=== PATIENT | male | born 1940 | race Caucasian/White ===

== ENCOUNTER → 2020-08-02 | Outpatient (CLI) | payer MEDICARE, OTHER ==
[~2020-08-02] MED LIST: ALLO300T PO; AMLO-150 PO; ASPI-496 PO; CHOL5000 PO; FLEC100T PO; HYDROCHLOROTH12.5 MG PO; LEVO25TA4 PO; LISI40TA PO; METO50TA82 PO; SIMV20TA19 PO; TEST100V2 INJ; TORS10TA4 PO; WARF-36 PO; WARF7.5T46 PO
[2020-08-02 13:53] LABS: BASOPHILS % (AUTO) 1 % (0-1); EOSINOPHILS % (AUTO) 3 % (1-7); LYMPHOCYTES % (AUTO) 24 % (22-44); MEAN CORPUSCULAR HEMOGLOBIN 33.7 pg (27.5-34.5); MEAN CORPUSCULAR HGB CONC 34.1 g/dL (33.2-36.2); MEAN PLATELET VOLUME 9.6 fL (7.4-10.4); MONOCYTES % (AUTO) 8 % (2-9); NEUTROPHILS % (AUTO) 63 % (42-75); PLATELET COUNT 169 x10^3/uL (130-400); RED BLOOD COUNT 4.69 x10^6/uL (4.38-5.82)
[2020-08-02 14:03] LABS: MD NO
[2020-08-02 14:06] LABS: CHLORIDE 103 mmol/L (98-107)
[2020-08-02 14:15] LABS: ALANINE AMINOTRANSFERASE 55 U/L (12-78); ALBUMIN 3.6 g/dL (3.4-5.0); ALKALINE PHOSPHATASE 59 U/L (45-117); ANION GAP 3 mmol/L (5-15); BILIRUBIN,TOTAL 0.8 mg/dL (0.2-1.0); CREATININE 1.38 mg/dL (0.7-1.3)
== END | disposition home or self-care (01) ==
LOC: STAR 10:08
PROVIDERS: ATTEND Orthopaedic Surgery
DX: Z01.810 Encounter for preprocedural cardiovascular examination (principal); Z01.818 Encounter for other preprocedural examination; M25.562 Pain in left knee; I49.1 Atrial premature depolarization; Z20.828 Contact with and (suspected) exposure to other viral communicable diseases
CPT/HCPCS: 80053; 85025; 87081; 87635; 93005

== ENCOUNTER 2020-08-08 08:51 | Observation (INO) | payer MEDICARE, OTHER ==
[~2020-08-08] VITALS: Ht 185.4 cm; Wt 140.8 kg
[~2020-08-08 08:51] MED LIST changes: +EPINEPHRINE 1 MG/ML, 1ML ONE; +KETOROLAC 60 MG/2 ML ONE; +ROPIvacaine/PF 0.2%, 20 ML ONE; +SODIUM CHLORIDE 0.9% 50 ML ONE; +TRANEXAMIC ACID 100 MG/ML, 10ML ONE
[2020-08-08] MEDS ORDERED: LACTATED RINGERS 1,000 ML IV SCH (09:30)
[2020-08-08] MEDS ORDERED: CHLORHEXIDINE 15 ML UDC MM ONE (09:30)
[2020-08-08 10:08] LABS: INTERNATIONAL NORMALIZED RATIO 1.16 (0.93-1.1); PROTHROMBIN TIME 12.3 Seconds (9.6-11.5)
[2020-08-08] MEDS ORDERED: FENTANYL PF 250 MCG/5ML ONE (10:30)
[2020-08-08] MEDS ORDERED: MIDAZOLAM 1 MG/ML, 2ML ONE (10:30)
[2020-08-08] MEDS ORDERED: ONDANSETRON 2MG/ML, 2ML ONE (11:20)
[2020-08-08] MEDS ORDERED: PROPOFOL 10 MG/ML, 20ML ONE (11:20)
[2020-08-08] MEDS ORDERED: SUCCINYLCHOLINE 20 MG/ML, 10ML ONE (11:20)
[2020-08-08] MEDS ORDERED: CEFAZOLIN 1,000 MG ONE (11:20)
[2020-08-08] MEDS ORDERED: ROCURONIUM 10 MG/ML,10ML ONE (11:20)
[2020-08-08] MEDS ORDERED: DEXAMETHASONE 4 MG/ML, 1ML ONE (11:20)
[2020-08-08] MEDS ORDERED: HYDROmorphone 1 MG/ML, 1ML INJ IV PRN (12:00)
[2020-08-08] MEDS ORDERED: ALBUTEROL SULFATE 2.5 MG/3 ML NPPB PRN (12:00)
[2020-08-08] MEDS ORDERED: LABETALOL 5MG/ML, 20ML IV PRN (12:00)
[2020-08-08] MEDS ORDERED: DIAZEPAM 5 MG/ML, 2ML IV PRN ×2 (12:00)
[2020-08-08] MEDS ORDERED: hydrALAzine 20 MG/ML, 1ML IV PRN (12:00)
[2020-08-08] MEDS ORDERED: ONDANSETRON 2MG/ML, 2ML IVPush PRN ×2 (12:00→13:00)
[2020-08-08] MEDS ORDERED: KETOROLAC 30 MG/1 ML IV PRN (12:00)
[2020-08-08] MEDS ORDERED: PROMETHAZINE 25 MG/ML, 1ML IV PRN (12:00)
[2020-08-08] MEDS ORDERED: OXYcodone 5 MG/5 ML ORAL.SOL UDC PO PRN (12:00)
[2020-08-08] MEDS ORDERED: METOCLOPRAMIDE 5 MG/ML, 2ML IV PRN (12:00)
[2020-08-08] MEDS ORDERED: MEPERIDINE/PF 25MG/0.5ML IVPush PRN (12:00)
[2020-08-08] MEDS ORDERED: PROMETHAZINE 12.5 MG SUPP PR PRN (13:00)
[2020-08-08] MEDS ORDERED: DIPHENHYDRAMINE 50 MG/ML, 1ML IVPush PRN (13:00)
[2020-08-08] MEDS ORDERED: ONDANSETRON 4 MG TABLET PO PRN (13:00)
[2020-08-08] MEDS ORDERED: DIPHENHYDRAMINE 50 MG CAPSULE PO PRN (13:00)
[2020-08-08] MEDS ORDERED: ALUMINUM/MAG/SIMETHICONE 30 ML UDC PO PRN (13:00)
[2020-08-08] MEDS ORDERED: DIAZEPAM 5 MG TABLET PO PRN (13:00)
[2020-08-08] MEDS ORDERED: SENNA/DOCUSATE TABLET PO PRN (13:00)
[2020-08-08] MEDS ORDERED: PSYLLIUM PACKET PO PRN (13:00)
[2020-08-08] MEDS ORDERED: BISACODYL 10 MG SUPP PR PRN (13:00)
[2020-08-08] MEDS ORDERED: POLYETHYLENE GLYCOL 17 GM PACKET PO PRN (13:00)
[2020-08-08] MEDS ORDERED: HYDROmorphone 1 MG/ML, 1ML INJ IVPush PRN (13:00)
[2020-08-08] MEDS ORDERED: MAGNESIUM HYDROXIDE 8%, 30ML UDC PO PRN (13:00)
[2020-08-08] MEDS ORDERED: OXYcodone IR 5MG TABLET PO PRN ×2 (13:00)
[2020-08-08] MEDS ORDERED: PROMETHAZINE 25 MG/ML, 1ML IM PRN (13:00)
[2020-08-08] MEDS ORDERED: FENTANYL PF 100 MCG/2ML ONE (13:13)
[2020-08-08] MEDS: FENTANYL PF 100 MCG/2ML IV PRN ×3 (13:15→13:53)
[2020-08-08] MEDS ORDERED: METHOCARBAMOL 1,000 MG in DEXTROSE 5% 100 ML IV ONE (13:30)
[2020-08-08] MEDS: SODIUM CHLORIDE 0.9% 1,000 ML IV SCH (17:31)
[2020-08-08] MEDS: CEFAZOLIN PMX 1GM/50ML 50 ML IVPB SCH (17:31)
[2020-08-08] MEDS: ACETAMINOPHEN 500 MG TABLET PO SCH (17:31)
[2020-08-08] MEDS ORDERED: WARFARIN 10 MG TABLET PO-COUM ONE (18:00)
[2020-08-08 19:50] VITALS: BP 156/79
[2020-08-08] MEDS: DOCUSATE 100 MG CAPSULE PO SCH (20:36)
[2020-08-08] MEDS: FLECAINIDE 100MG TABLET PO SCH (20:36)
[2020-08-08] MEDS ORDERED: SIMVASTATIN 20 MG TABLET PO SCH (21:00)
[2020-08-09] MEDS: ACETAMINOPHEN 500 MG TABLET PO SCH ×2 (00:31→06:27)
[2020-08-09] MEDS: CEFAZOLIN PMX 1GM/50ML 50 ML IVPB SCH (00:31)
[2020-08-09 00:32] VITALS: BP 120/62
[2020-08-09 04:48] VITALS: BP 124/70
[2020-08-09 05:34] LABS: INTERNATIONAL NORMALIZED RATIO 1.19 (0.93-1.1); PROTHROMBIN TIME 12.6 Seconds (9.6-11.5)
[2020-08-09] MEDS ORDERED: LEVOTHYROXINE 25 MCG TABLET PO SCH (06:00)
[2020-08-09] MEDS ORDERED: DEXAMETHASONE 4 MG/ML, 1ML IVPush SCH (06:00)
[2020-08-09] MEDS: SODIUM CHLORIDE 0.9% 1,000 ML IV SCH (06:20)
[2020-08-09 06:30] VITALS: BP 127/72
[2020-08-09] MEDS: DOCUSATE 100 MG CAPSULE PO SCH (07:53)
[2020-08-09] MEDS: FLECAINIDE 100MG TABLET PO SCH (07:53)
[2020-08-09] MEDS ORDERED: TAMSULOSIN 0.4 MG CAP.ER.24H PO ONE (08:00)
[2020-08-09] MEDS ORDERED: METOPROLOL TARTRATE 25 MG TAB PO SCH (09:00)
[2020-08-09] MEDS ORDERED: LISINOPRIL 40 MG TABLET PO SCH (09:00)
[2020-08-09] MEDS ORDERED: ALLOPURINOL 300 MG TABLET PO SCH (09:00)
[2020-08-09] MEDS ORDERED: AMLODIPINE 5 MG TABLET PO SCH (09:00)
[2020-08-09] MEDS ORDERED: TORSEMIDE 20 MG TABLET PO SCH (09:00)
== END 2020-08-09 10:12 | disposition home or self-care (01) ==
LOC: OUT 08:51 → ORIP 12:59 → 4NE 14:41 → DCLOUNGE 08-09 09:59
PROVIDERS: ADMIT Orthopaedic Surgery; ATTEND Orthopaedic Surgery
DX: M17.12 Unilateral primary osteoarthritis, left knee (principal); J45.909 Unspecified asthma, uncomplicated; I10 Essential (primary) hypertension; I48.91 Unspecified atrial fibrillation; G47.33 Obstructive sleep apnea (adult) (pediatric); Z79.899 Other long term (current) drug therapy; Z96.652 Presence of left artificial knee joint
CPT/HCPCS: 27447; 36415; 73560; 85014; 85018; 85610; 85730; 96365; 96375; 96376; 97110; 97161; C1713; C1776; G0378; J0171; J0330; J0690; J1100; J1885; J2250; J2405; J2704; J2795; J2800; J3010; J7030; J7120

== ENCOUNTER → 2020-11-15 | Outpatient (CLI) | payer MEDICARE, OTHER ==
[~2020-11-15] MED LIST changes: -EPINEPHRINE 1 MG/ML, 1ML ONE; -KETOROLAC 60 MG/2 ML ONE; -LISI40TA PO; +LISI40TA9 PO; -ROPIvacaine/PF 0.2%, 20 ML ONE; -SODIUM CHLORIDE 0.9% 50 ML ONE; -TRANEXAMIC ACID 100 MG/ML, 10ML ONE
== END | disposition home or self-care (01) ==
LOC: CFH 09:49
PROVIDERS: ATTEND Internal Medicine Cardiovascular Disease
DX: I25.10 Atherosclerotic heart disease of native coronary artery without angina pectoris (principal); I10 Essential (primary) hypertension; E78.2 Mixed hyperlipidemia; R06.02 Shortness of breath
CPT/HCPCS: 75571

== ENCOUNTER 2021-01-10 08:14 | Outpatient (CLI) | payer MEDICARE, OTHER | END 2021-01-10 23:59 | disposition home or self-care (01) | LOC: CVU 08:14 | PROVIDERS: ATTEND Internal Medicine Cardiovascular Disease | DX: I08.0 Rheumatic disorders of both mitral and aortic valves (principal); E78.2 Mixed hyperlipidemia; I10 Essential (primary) hypertension | CPT/HCPCS: 93306 ==